=== PATIENT | female | born 1985 | race Caucasian/White ===

== ENCOUNTER 2022-04-03 14:49 | Emergency (ER) | payer BC ==
[2022-04-03 16:30] LABS: HEMOGLOBIN 14.6 gm/dl (12.3-15.3); RED BLOOD COUNT 4.65 M/UL (4.00-5.10)
[2022-04-03 17:02] LABS: BUN/CREATININE RATIO 21 (0-10)
[2022-04-03] MEDS ORDERED: ZOFRAN ODT 4 MG4 MG PO (17:56)
[2022-04-03] MEDS ORDERED: MACROBID 100 M100 MG PO (17:56)
== END 2022-04-03 18:10 | disposition home or self-care (01) ==
LOC: ER1 14:49
PROVIDERS: Family Medicine
DX: N39.0 Urinary tract infection, site not specified (principal); R51.9 Headache, unspecified; F17.200 Nicotine dependence, unspecified, uncomplicated; Z20.822 Contact with and (suspected) exposure to COVID-19
CPT/HCPCS: 80053; 81001; 84703; 85025; 87077; 87086; 87186; 96361; 96374; 96375; 99284; J1885; J2405; U0002